=== PATIENT | male | born 1985 | race Caucasian/White ===

== ENCOUNTER 2017-02-16 23:26 | Emergency (ER) | payer SELFPAY ==
[~2017-02-16] VITALS: Ht 167.6 cm; Wt 66.0 kg
[~2017-02-16 23:26] MED LIST: ASPIR-LOW81 M1 PO; LANOXIN,DIGIT0.25 MG PO; NAPROSYN500 MG PO; NORCO 5/3251 TABLET PO; PRINIVIL20 MG PO
[2017-02-17] MEDS ORDERED: BACTRIM,SEPT1 TABLET PO (02:46)
[2017-02-17] MEDS ORDERED: NORCO 5/3251 TABLET PO (02:46)
[2017-02-17 03:06] VITALS: BP 131/77
== END 2017-02-17 03:07 | disposition home or self-care (01) ==
LOC: EXP 23:26 → EME 23:26 → EXP 02-17 03:07
PROC: 0H9BXZZ Drainage of Right Upper Arm Skin, External Approach (ICD-10-PCS; principal; 2017-02-16)
DX: L02.411 Cutaneous abscess of right axilla (principal); Z95.0 Presence of cardiac pacemaker; Z79.82 Long term (current) use of aspirin; F17.200 Nicotine dependence, unspecified, uncomplicated
CPT/HCPCS: 99281; 99284; J2060